=== PATIENT | male | born 1935 | race Caucasian/White ===

== ENCOUNTER 2020-08-31 13:44 | Outpatient (CLI) | payer OTHER | END 2020-08-31 15:43 | disposition home or self-care (01) | LOC: NUCLEAR 13:44 | PROVIDERS: ATTEND Internal Medicine Pulmonary Disease | DX: J90 Pleural effusion, not elsewhere classified (principal); J91.8 Pleural effusion in other conditions classified elsewhere; I26.01 Septic pulmonary embolism with acute cor pulmonale | CPT/HCPCS: 78580; A9540 ==